=== PATIENT | female | born 1955 | race Caucasian/White ===

== ENCOUNTER 2017-07-31 15:06 | Emergency (ER) | payer BC ==
[2017-07-31] MEDS ORDERED: SODIUM CHLORIDE 0.9% 1,000 ML IV STA (16:13)
[2017-07-31] MEDS ORDERED: METOCLOPRAMIDE 5 MG/ML 2 ML VIAL IVP STA (16:13)
[2017-07-31] MEDS ORDERED: HYDROmorphone 1 MG/ML 1 ML SYRINGE IVP STA (16:16)
--- NOTE | 2017-07-31 16:19 | ED ---
General Adult HPI - General Chief complaint: Fever Stated complaint: headache & fever-sent by Dr. Ledesma Seen by Provider: 07/31/17 16:03 Source: patient, family, RN notes reviewed Mode of arrival: ambulatory Limitations: no limitations - History of Present Illness Initial comments: Patient is a pleasant 62-year-old female presenting to the emergency department with complaints of headache. Onset of symptoms was Saturday. Patient has a headache above her right eyebrow and right temporal region. Headache is moderate to severe and has been mostly steady. Patient has noticed chills and subjective fevers for the past 2 days as well. Patient denies any neck pain or neck stiffness. No photophobia. No visual changes. Patient states she believes she had meningitis twice previously. Upon further questioning patient states she was seen one time and diagnosed with presumptive viral meningitis. Patient did not have lumbar puncture done at that time. Patient states the second time she had similar symptoms and just assumed she had meningitis. Patient did not see a practitioner at that time. Patient states she has never had a lumbar puncture. - Related Data Home Medications Medication Instructions Recorded Confirmed Aspirin EC [Ecotrin Low Dose] 81 mg PO DAILY 07/31/17 07/31/17 Cholecalciferol [Vitamin D3] 5,000 unit PO DAILY 07/31/17 07/31/17 Multivitamins, Thera [Multivitamin 1 tab PO DAILY 07/31/17 07/31/17 (formulary)] Previous Rx's Medication Instructions Recorded Amoxicillin 500 mg PO Q8H #30 capsule 07/31/17 predniSONE 3 tab PO DAILY #21 tab 07/31/17 traMADol HCl [Ultram] 50 mg PO Q6H PRN #20 tab 07/31/17 Allergies Allergy/AdvReac Type Severity Reaction Status Date / Time celecoxib [From Celebrex] Allergy Rash/Hives Verified 07/31/17 15:51 Review of Systems ROS Statement: Those systems with pertinent positive or pertinent negative responses have been documented in the HPI. ROS Other: All systems not noted in ROS Statement are negative. Constitutional: Reports: fever, chills Eyes: Denies: eye pain ENT: Denies: ear pain Respiratory: Denies: cough Cardiovascular: Denies: chest pain Endocrine: Denies: fatigue Gastrointestinal: Denies: abdominal pain Genitourinary: Denies: dysuria Musculoskeletal: Denies: back pain Skin: Denies: rash Neurological: Reports: headache. Denies: weakness, numbness, paresthesias, confusion Past Medical History Additional Past Medical History / Comment(s): Possible [place] 2001 History of Any Multi-Drug Resistant Organisms: None Reported Past Surgical History: Appendectomy, Orthopedic Surgery Past Psychological History: No Psychological Hx Reported Smoking Status: Never smoker Past Alcohol Use History: None Reported Past Drug Use History: None Reported General Exam Limitations: no limitations General appearance: alert, in no apparent distress Head exam: Present: atraumatic, normocephalic, normal inspection, other ( minimal tenderness over the right temporal artery) Eye exam: Present: normal appearance, PERRL, EOMI. Absent: nystagmus ENT exam: Present: normal oropharynx, other (mild tenderness over the frontal and ethmoid sinuses) Neck exam: Present: normal inspection. Absent: meningismus Respiratory exam: Present: normal lung sounds bilaterally Cardiovascular Exam: Present: regular rate, normal rhythm GI/Abdominal exam: Present: soft. Absent: tenderness Extremities exam: Present: normal inspection Neurological exam: Present: alert, oriented X3, CN II-XII intact. Absent: motor sensory deficit Expanded Speech: Present: fluid speech Cranial nerves: EOM's Intact: Normal, Facial Sensation: Normal Cerebellar function: Finger to Nose: Normal Sensory exam: Upper Extremity Light Touch: Normal, Lower Extremity Light Touch: Normal Motor strength exam: RUE: 5, LUE: 5, RLE: 5, LLE: 5 Eye Response: (4) open spontaneously Motor Response: (6) obeys commands Verbal Response: (5) oriented Psychiatric exam: Present: normal affect, normal mood Skin exam: Present: normal color Course Vital Signs 07/31/17 07/31/17 07/31/17 15:13 16:51 17:51 Temperature 101.3 F H 101.1 F H 100.4 F H Pulse Rate 112 H 123 H 118 H Respiratory 20 20 18 Rate Blood Pressure 132/84 121/69 103/63 O2 Sat by Pulse 99 94 L 97 Oximetry - Reevaluation(s) Reevaluation #1: 07/31/17 18:26 patient reevaluated and resting comfortably in bed. Only mild discomfort at this time. Patient is updated on results and plan. Patient and family are made aware that my main suspicion is for temporal arteritis. Sinusitis could be a component also. Patient is felt to be very low suspicion for meningitis. Despite this patient is made aware that meningitis can only be completely ruled out by performing lumbar puncture. Patient is explained risks and benefits of lumbar puncture. Patient is unclear if she wants this procedure not at this time. Case was also discussed with Dr. granado who agreed with plan. He does also feel patient has low risk for meningitis but agrees with offering lumbar puncture. He feels otherwise patient can be discharged for follow-up. Patient is made aware of need for steroid and likely continue steroids past the Current prescription. Patient is made aware of need for close follow-up with primary care physician as well as need for follow-up with vascular surgeon for temporal artery biopsy in the near future. 07/31/17 18:51 patient again reexamined and further improved. Patient is requesting discharge home. Patient was again offered lumbar puncture however does not want to have it done. Patient is advised this can be reconsidered if her symptoms worsen or change and is explained symptoms consistent with meningitis. Patient is advised close follow-up with her doctor and to see her doctor this week. Patient is also advised of need to follow-up with vascular doctor and to take steroids. Patient will be covered antibiotic's for possible sinus involvement. Medical Decision Making - Lab Data Result diagrams: 07/31/17 16:30 07/31/17 16:30 Lab Results 07/31/17 07/31/17 07/31/17 Range/Units 16:30 16:30 16:30 WBC 9.3 (3.8-10.6) k/uL RBC 4.47 (3.80-5.40) m/uL Hgb 13.5 (11.4-16.0) gm/dL Hct 41.4 (34.0-46.0) % MCV 92.8 (80.0-100.0) fL MCH 30.3 (25.0-35.0) pg MCHC 32.7 (31.0-37.0) g/dL RDW 12.9 (11.5-15.5) % Plt Count 231 (150-450) k/uL Neutrophils % 77 % Lymphocytes % 14 % Monocytes % 7 % Eosinophils % 0 % Basophils % 0 % Neutrophils # 7.2 (1.3-7.7) k/uL Lymphocytes # 1.3 (1.0-4.8) k/uL Monocytes # 0.6 (0-1.0) k/uL Eosinophils # 0.0 (0-0.7) k/uL Basophils # 0.0 (0-0.2) k/uL ESR 72 H (0-20) mm/hr PT 10.6 (9.0-12.0) sec INR 1.0 (<1.2) APTT 23.4 (22.0-30.0) sec Sodium 134 L (137-145) mmol/L Potassium 3.9 (3.5-5.1) mmol/L Chloride 99 (98-107) mmol/L Carbon Dioxide 19 L (22-30) mmol/L Anion Gap 16 mmol/L BUN 12 (7-17) mg/dL Creatinine 0.90 (0.52-1.04) mg/dL Est GFR (MDRD) Af Amer >60 (>60 ml/min/1.73 sqM) Est GFR (MDRD) Non-Af >60 (>60 ml/min/1.73 sqM) Glucose 77 (74-99) mg/dL Calcium 9.3 (8.4-10.2) mg/dL Total Bilirubin 0.9 (0.2-1.3) mg/dL AST 22 (14-36) U/L ALT 30 (9-52) U/L Alkaline Phosphatase 74 (38-126) U/L Total Protein 7.1 (6.3-8.2) g/dL Albumin 4.0 (3.5-5.0) g/dL - Radiology Data Radiology results: image reviewed (Computed tomography scan of the brain shows no acute process) Disposition Clinical Impression: Temporal arteritis Disposition: HOME SELF-CARE Condition: Stable Instructions: Fever in Adults (ED), Acute Headache (ED), Temporal Arteritis (ED ) Additional Instructions: please follow-up with your doctor this week. please also follow-up with vascular surgery in the next few days for temporal artery biopsy. Steroids will need to be continued likelypast history. Your primary care physician can help assist with this. Continue aspirin daily until otherwise advised by your doctor. For increased headache, generalized headache, fevers, neck stiffness or neck pain, worsening symptoms or other concerns. Prescriptions: Amoxicillin 500 mg PO Q8H #30 capsule predniSONE 3 tab PO DAILY #21 tab traMADol HCl [Ultram] 50 mg PO Q6H PRN #20 tab PRN Reason: Pain/Discomfort Referrals: Tevin Rosa MD [Primary Care Provider] - 1-2 days Time of Disposition: 18:57
[2017-07-31 16:43] LABS: Basophils % (A) 0 %; CH 30.3; CHCM 32.8; Eosinophils % (A) 0 %; HCT 41.4 % (34.0-46.0); HDW 2.37; HGB 13.5 gm/dL (11.4-16.0); Luc # (Auto) 0.12; Luc % (Auto) 1; Lymphocytes # (A) 1.3 k/uL (1.0-4.8); Lymphocytes % (A) 14 %; MCH 30.3 pg (25.0-35.0); MCHC 32.7 g/dL (31.0-37.0); MCV 92.8 fL (80.0-100.0); Mean Platelet Volume 6.7; Monocytes # (A) 0.6 k/uL (0-1.0); Monocytes % (A) 7 %; Neutrophils # (A) 7.2 k/uL (1.3-7.7); Neutrophils % (A) 77 %; RBC 4.47 m/uL (3.80-5.40); RDW 12.9 % (11.5-15.5); WBC 9.3 k/uL (3.8-10.6); WBC (Perox) 8.88
[2017-07-31 16:53] LABS: ALT 30 U/L (9-52); AST 22 U/L (14-36); Alkaline Phosphatase 74 U/L (38-126); Anion Gap 16 mmol/L; Blood Urea Nitrogen 12 mg/dL (7-17); Calcium 9.3 mg/dL (8.4-10.2); Carbon Dioxide 19 mmol/L (22-30); Chloride 99 mmol/L (98-107); Glucose 77 mg/dL (74-99); Non-African American GFR(MDRD) >60 (>60 ml/min/1.73 sqM); Potassium 3.9 mmol/L (3.5-5.1); Sodium 134 mmol/L (137-145); Total Bilirubin 0.9 mg/dL (0.2-1.3); Total Protein 7.1 g/dL (6.3-8.2)
[2017-07-31 16:59] LABS: Partial Thromboplastin Time 23.4 sec (22.0-30.0); Prothrombin Time 10.6 sec (9.0-12.0)
[2017-07-31] MEDS ORDERED: ACETAMINOPHEN TAB 500 MG TAB PO STA (17:29)
--- NOTE | 2017-07-31 17:36 | CT ---
EXAMINATION TYPE: CT brain wo con DATE OF EXAM: 07/31/2017 COMPARISON: 10/30/2014 HISTORY: Headache and fever. CT DLP: 1121.00 mGycm Automated exposure control for dose reduction was used. FINDINGS: Ventricles have normal size. There is no mass effect nor midline shift. There is no sign of intracran ial hemorrhage. The calvarium is intact. IMPRESSION: NEGATIVE CT SCAN OF THE BRAIN. NO CHANGE.
[2017-07-31 17:39] LABS: Erythrocyte Sedimentation Rate 72 mm/hr (0-20)
[2017-07-31 17:52] VITALS: BP 103/63; PULSE 118; RESP 18
[2017-07-31] MEDS ORDERED: predniSONE 20 MG TAB PO STA (18:55)
[2017-07-31 19:07] VITALS: TEMP 98.9
== END 2017-07-31 19:07 | disposition home or self-care (01) ==
LOC: EC 15:06
DX: M31.6 Other giant cell arteritis (principal); I25.2 Old myocardial infarction; Z79.82 Long term (current) use of aspirin; Z79.899 Other long term (current) drug therapy; Z88.6 Allergy status to analgesic agent
CPT/HCPCS: 36415; 80053; 85652; 85025; 85610; 85730; 87040; 70450; 99284; 96374; 96375; 96361; J2765; J1170; J7512

== ENCOUNTER → 2019-08-29 | Outpatient (CLI) | payer BC ==
--- NOTE | 2019-09-01 08:01 | MM ---
Reason for exam: screening (asymptomatic). Last mammogram was performed 10 years and 1 month ago. History: Patient is postmenopausal. Took hormonal contraceptives for 5 years. Physical Findings: A clinical breast exam by your physician is recommended on an annual basis and results should be correlated with mammographic findings. MG Screening Mammo w CAD Bilateral CC and MLO view(s) were taken. Prior study comparison: August 09, 2009, mammogram. The breast tissue is heterogeneously dense. This may lower the sensitivity of mammography. There is a focal asymmetry right breast. ASSESSMENT: Incomplete: need additional imaging evaluation, BI-RAD 0 RECOMMENDATION: Special view mammogram of the right breast. If lesion persists on supplemental views, image directed ultrasound is recommended. [facility] will attempt to contact patient to return for supplemental views and ultrasound if indicated.
== END | disposition home or self-care (01) ==
LOC: RADMAMWWP 08:16
PROVIDERS: ATTEND Family Medicine
DX: Z12.31 Encounter for screening mammogram for malignant neoplasm of breast (principal)
CPT/HCPCS: 77067